=== PATIENT | male | born 1985 | race Caucasian/White ===

== ENCOUNTER 2022-06-13 08:00 | Outpatient (CLI) | payer BC ==
[~2022-06-13] VITALS: Ht 177.8 cm; Wt 83.9 kg
== END 2022-06-13 18:00 | disposition home or self-care (01) ==
LOC: SLB 08:00 → SDS 12:00 → SMU 12:01 → SDS 12:01 → SMU 13:10 → SDS 13:10 → EDSTATUS 13:30 → SLB 18:00
PROVIDERS: ATTEND Surgery
DX: A63.0 Anogenital (venereal) warts (principal); A51.31 Condyloma latum; Z20.822 Contact with and (suspected) exposure to COVID-19; Z53.8 Procedure and treatment not carried out for other reasons
CPT/HCPCS: 36415; 87081